=== PATIENT | female | born 1945 | race Caucasian/White ===

== ENCOUNTER 2023-01-23 | Outpatient (REF) | payer MEDICARE, SELFPAY | END 2023-01-23 00:01 | disposition home or self-care (01) | LOC: CF | PROVIDERS: Visit Provider Nurse Practitioner Family | DX: J44.9 Chronic obstructive pulmonary disease, unspecified (principal); R05.9 Cough, unspecified; R06.09 Other forms of dyspnea | CPT/HCPCS: 99212 ==

== ENCOUNTER 2023-01-23 14:44 | Outpatient (AMB) | payer MEDICARE, SELFPAY ==
--- NOTE | 2023-01-23 14:52 | A.OFFVIS_ITS ---
Intake Vital Signs 01/23/23 14:56 Height 5 ft 5 in Weight 175 lb BMI 29.1 BP 126/64 Blood Pressure Location Lt brachial Position Sitting Pulse 84 Pulse Source Pulse Oximeter Pulse Oximetry (%) 100 Oxygen Delivery Method Room Air Intake Visit Reasons: COPD Talent Manager Required: No Certified Master Locksmith: Certified Master Locksmith offered & declined Accompanied by: Daughter Allergies No Known Allergies Allergy (Verified 01/23/23 15:20) Medication List - Last Reconciled 01/23/23 by Bhakti Saunders LPN calcium carbonate 600 mg PO DAILY cetirizine 10 mg PO DAILY PRN cholecalciferol (vitamin D3) 50 mcg PO DAILY citalopram 20 mg PO DAILY fluticasone propionate 50 mcg/actuation (Flonase Allergy Relief) 2 sprays intranasal BID HPI COPD HPI Details Pippa is a very pleasant 77 year old female, never smoker, with underlying history of COPD and breast cancer s/p mastectomy. Denies any chemo/radiation, follows with oncology annually. She was referred by PCP for pulmonary evaluation. She reports being diagnosed with COPD last year and attributes it to significant secondary exposure from parents and . She reports dyspnea with moderate exertion such as hills and stairs. She does report intermittent bilateral lower extremity edema and orthopnea. She denies any prior echo. Over the last year she has had multiple episodes of bronchitis that seem to be prolonged each time. She reportedly just had bronchitis with a persistent productive cough with clear sputum which did not improve with prednisone or albuterol and she just finished a course of doxycyline last week, having complete resolution of symptoms. She reports post nasal drip. Denies any allergy testing. She denies any occupational exposures. She denies any pertinent family history. COUNTS INCLUDE 234 BEDS AT THE [facility] Social History (Updated 01/23/23 @ 15:06 by Bhakti Saunders LPN) Patient Tobacco Use Status: Never used Tobacco Review of Systems Const Denies chills, Denies excessive sweating, Denies fever(s), Denies headache(s) and Denies night sweats Eyes Denies dry eyes, Denies irritation and Denies itchy eyes ENT Reports Normal hearing present, Denies headache(s), Denies nasal congestion, Denies nasal discharge and Denies sore throat Card Denies chest pain, Denies chest pain at rest, Denies chest pain with activity and Denies paroxysmal nocturnal dyspnea Resp Denies chest congestion, Denies cough, Denies excessive phlegm production, Denies pain on inspiration, Denies pain with cough, Denies stridor and Denies wheezing Musc Denies myalgias Neuro Reports Normal hearing present and Denies headache(s) Endo Denies excessive sweating Marcelino/Lymph Denies lymphadenopathy Aller/Immun Denies itchy eyes, Denies seasonal rhinorrhea and Denies wheezing Physical Exam Vital Signs: Last Vital Signs Pulse 84 01/23/23 14:56 BP 126/64 01/23/23 14:56 Pulse Ox 100 01/23/23 14:56 Oxygen Delivery Method Room Air 01/23/23 14:56 BMI result Body Mass Index 29.1 Const General: cooperative, healthy appearing, comfortable, no acute distress, well developed and alert Orientation/consciousness: patient oriented x3 Limitations: no limitations HEENT Head: Yes normal to inspection, Yes normocephalic and Yes atraumatic Ears: hearing grossly normal bilaterally and external ears normal Eyes General: appearance normal, both eyes and all related structures Eyelids: Yes eyelids normal Sclerae: sclerae normal EOM: EOMs intact bilaterally Neck Neck: Yes normal visual inspection and Yes no lymphadenopathy Lymphatic: no lymphadenopathy noted Chest Chest palpation & inspection: normal inspection of the chest Resp Effort & Inspection: normal respiratory effort, able to speak in complete sentences, no audible wheezes, no cough, no stridor, not tachypneic, no tripod positioning and no use of accessory muscles Auscultation: clear to auscultation bilaterally Cardio Jugular venous distension: no JVD Rate: regular rate Rhythm: regular rhythm Skin Other: warm, dry General skin exam: no rashes or lesions noted Neuro General: patient oriented x3 Cranial nerves: Yes Normal hearing present Cognition (Neuro): normal cognition Gait exam (Neuro): Normal gait present Extrem Other: trace BLE edema General: Yes normal to inspection and Yes capillary refill normal Psych Appearance: grossly normal and well kempt Speech and movement: Normal speech and movement present and Clear speech present Affect: normal affect Attitude: cooperative Thought process: Normal thought process present Thought content: Normal thought content present Insight: Good insight present (Psych) Judgement: Good judgement present (Psych) Assessment & Plan Assessment & Plan (1) COPD (chronic obstructive pulmonary disease): Code(s): J44.9 - Chronic obstructive pulmonary disease, unspecified (2) Cough: Code(s): R05.9 - Cough, unspecified (3) Dyspnea on exertion: Code(s): R06.09 - Other forms of dyspnea Plan Pippa's symptoms are likely multifactorial with contribution from pulmonary and possible cardiac etiologies. She reports a history of COPD, of unknown severity, will send for PFT and labs. Will also send for chest CT for ongoing cough. She also reports ongoing symptoms of dyspnea on exertion, orthopnea, and bilateral lower extremity swelling. Will send for echocardiogram. All questions were answered and patient is in agreement of plan. Will follow up in 4-6 weeks to review results. Orders: Orders CT chest wo IV con Today J44.9 - Chronic obstructive pulmonary disease, unspecified, R05.9 - Cough, unspecified PFT pulmonary function test Today J44.9 - Chronic obstructive pulmonary disease, unspecified Complete Blood Count Auto Diff Today R05.9 - Cough, unspecified CA echo transthoracic complete Today R06.01 - Orthopnea, R06.09 - Other forms of dyspnea Rast Allergen Today R05.9 - Cough, unspecified Coding Level of Care Code New Pt Level 4 (93940) Diagnoses COPD (chronic obstructive pulmonary disease) J44.9 Cough R05.9 Dyspnea on exertion R06.09
[2023-01-23 14:56] VITALS: BP 126/64; PULSE 84; O2SAT 100; BMI 29.1
== END 2023-01-23 16:14 | disposition home or self-care (01) ==
LOC: HO.HPSW 14:44
PROVIDERS: PCP Internal Medicine; Visit Provider Nurse Practitioner Family
DX: J44.9 Chronic obstructive pulmonary disease, unspecified (principal); R05.9 Cough, unspecified; R06.09 Other forms of dyspnea
CPT/HCPCS: 99204

== ENCOUNTER 2023-02-27 08:27 | Outpatient (REF) | payer MEDICARE, SELFPAY ==
--- NOTE | ~2023-02-27 | CT_ITS ---
EXAMINATION: CT CHEST WITHOUT CONTRAST CLINICAL INFORMATION: COPD COMPARISON: None available. TECHNIQUE: Multidetector volumetric CT imaging of the chest was done. Axial MIP volume rendering provided. Sagittal and coronal reformatted images were obtained. This CT examination was performed using dose optimization techniques as appropriate, variously including the following: *Automated exposure control *Adjustment of mA and/or kV according to patient size (this includes techniques or standardized protocols for targeted exams where dose is matched to indication/reason for exam; i.e. extremities or head) *Use of iterative reconstruction technique DLP: 127 mGy-cm FINDINGS: MACHINE FEEDER RAW STOCK: Right breast hyperdensities. Slightly elevated right hemidiaphragm. LUNGS: Trachea and bronchi are patent. Intraluminal debris in the trachea and left mainstem bronchus likely mucus. Diffuse mild bronchial wall thickening. Scattered atelectasis. No consolidations or groundglass opacities. No definite emphysematous changes. 4 mm right minor fissural lymph node, 6:90. No suspicious lung lesions. MEDIASTINUM: Unremarkable thyroid. No pathologic lymphadenopathy. Nonenlarged heart. No pericardial effusion. Nonaneurysmal aorta with minimal atherosclerotic calcifications. Nonenlarged pulmonary arteries. CORONARY ARTERY CALCIFICATION: None visualized on this study. PLEURA: There is no pleural effusion. No pleural mass or thickening. AXILLA: No lymphadenopathy. UPPER ABDOMEN: Unremarkable. OSSEOUS AND SOFT TISSUE STRUCTURES: Bilateral breast implants. Focal hyperdensities adjacent to right breast prosthesis. Kyphosis and degenerative changes. CT/CT chest wo IV con IMPRESSION: No acute intrathoracic pathology, suspicious lung lesions or significant emphysematous changes. Fleischner guidelines were followed.
[2023-02-27 09:43] LABS: MANUAL DIFF FLAG NO
[2023-02-27 10:18] LABS: Basophils Percent Auto 0.2 % (0-2); Eosinophils Absolute Auto 0.1 X10*3/uL (0.0-0.4); Hematocrit 38.6 % (37.0-47.0); Hemoglobin 12.9 g/dl (12.0-16.0); Imm Gran Abs Auto 0.01 X10*3/uL (0.00-0.03); Imm Gran Pct Auto 0.2 % (0.0-0.4); Lymphocytes Absolute Auto 1.4 X10*3/uL (1.2-4.9); Lymphocytes Percent Auto 29.2 % (20-40); Mean Corpuscular HGB Conc 33.4 g/dl (31.0-35.0); Mean Corpuscular Hemoglobin 29.9 pg (27.0-33.0); Mean Corpuscular Volume 89.6 fL (80.0-98.0); Monocytes Absolute Auto 0.5 X10*3/uL (0.1-1.2); Neutrophils Absolute Auto 2.7 x10*3/uL (2.0-8.3); Neutrophils Percent Auto 57.4 % (45-73); Platelet Count 274 X10*3/uL (160-400); Red Blood Count 4.31 X10*6/uL (4.20-5.50); Red Cell Distribution Width 12.9 % (11.0-16.0); White Blood Count 4.7 X10*3/uL (4.8-10.8)
--- NOTE | 2023-02-27 11:08 | CA_ITS ---
Transthoracic Echocardiogram Patient (Last, First, Middle): Pippa Alonso C Gender: Female Date of : 1945 Age: 77 Procedure Date: 02/27/2023 Procedure Type: Transthoracic Echocardiogram Location: OP Height: 165.1 cm Weight: 78.93 kg BSA: 1.86 m2 Heart Rate: 84 bpm BP: 130 / 64 mmHg Virtualization Consultant: SB Referring MD: Genie Galvin CLAY DRY PRESS HELPER Symptoms: R06.09 - Other forms of dyspnea Study Quality: Technically Difficult/breast implants ECG Rhythm: Sinus Conclusions: - The left ventricular systolic function is hyperdynamic. The visually estimated ejection fraction is >70%. - No obvious valvular pathology seen on this study. - Mild pulmonary hypertension is present. Findings Procedure Information Contrast agent, definity, is being given per protocol without apparent complications. The quality of the study was technically difficult. Left Ventricle Normal left ventricular cavity size. The left ventricular systolic function is hyperdynamic. The visually estimated ejection fraction is >70%. There is no evidence of regional wall motion abnormalities. Diastolic function is normal for age. Right Ventricle The right ventricle was not well visualized. Normal right ventricular cavity size. Atria The left atrium is likely dilated. The right atrium is normal in size. Aortic Valve The aortic valve was not well visualized. There is no aortic valve stenosis. There is no aortic valve regurgitation. Mitral Valve The mitral valve was not well visualized. There is no mitral valve regurgitation. There is no mitral valve stenosis. Pulmonic Valve The pulmonic valve was not well visualized. Tricuspid Valve There is mild tricuspid valve regurgitation. Mild pulmonary hypertension is present. Great Vessels The aorta was not well visualized. Venous The inferior vena cava is normal in size and collapses less than 50% with inspiration. Pericardium/Pleural There is no evidence of pericardial effusion. Prior Study Comparison No prior study available for comparison. Recommendations, Care & Conclusions No obvious valvular pathology seen on this study. Measurements 2D Systolic Function EF 2C: 84.30 >55% Mitral Valve MV Pk E: 1.20 MV PK A: 0.72 MV Decel Time: 149.00 E/A: 1.70 E'Lateral: 8.55 E'Medial: 8.86 E/E' Med: 13.50 E/E' Lat: 14.00 PHT: 44.00 MVA PHT: 5.00 Decel [place]: 8.07 Aortic Valve AoV Pk Thad: 1.44 AoV Pk Grad: 8.00 LVOT LVOT Pk Thad: 1.30 LVOT Mn Thad: 0.91 LVOT VTI: 0.25 LVOT Pk Grad: 7.00 LVOT Mn Grad: 4.00 Diastolic Function MV Pk E: 1.20 MV Pk A: 0.72 E/A: 1.70 E'Medial: 8.86 E/E' Med: 13.50 E' Laterial: 8.55 E/E' Lat: 14.00 Tricuspid Valve TR Pk Thad: 2.89 TR Pk Grad: 33.00 RA Press: 3.00 RVSP: 36.00 Great Vessels Aorta Ao Arch: 2.80 Pulmonary Valve PV Pk Thad: 0.95 Peak PV Grad: 4.00 Updated in Other Vendor System with Status of Final Fito Guaman MD electronically signed on 02/28/2023 1:03:48 PM with status of Final
--- NOTE | 2023-02-27 11:46 | PFT_ITS ---
Forced vital capacity 74%, FEV1 77%, FEV1/FVC ratio is 79. [id number] 94% and MVV 77%. Post bronchodilator therapy, there is no significant change. Lung Volumes: Total lung capacity 76%. Residual volume 84%. Diffusion capacity 41%. DL/VA is 100%. CONCLUSION: There is evidence of mild restrictive pulmonary disorder. No obstructive airway disorder. No response to bronchodilator therapy. Diffusion capacity is quite decreased, but it corrects to normal when compared with the volume. DL/VA noted 100%. Jada Mallory MD MSB/MODL / [id number]
== END 2023-02-27 08:28 | disposition home or self-care (01) ==
LOC: HO.CT 08:27
PROVIDERS: PCP Internal Medicine; Visit Provider Nurse Practitioner Family
DX: J44.9 Chronic obstructive pulmonary disease, unspecified (principal); R05.9 Cough, unspecified; R06.09 Other forms of dyspnea; R06.01 Orthopnea
CPT/HCPCS: 36415; 71250; 82785; 85025; 86003; 93306; 94010; 94727; 94729; Q9957

== ENCOUNTER → 2023-02-27 11:08 | Outpatient (BNV) | payer MEDICARE, SELFPAY | PROVIDERS: PCP Internal Medicine; Visit Provider Internal Medicine | DX: I36.1 Nonrheumatic tricuspid (valve) insufficiency (principal) | CPT/HCPCS: 93306 ==

== ENCOUNTER → 2023-02-27 11:46 | Outpatient (BNV) | payer MEDICARE, SELFPAY | PROVIDERS: PCP Internal Medicine; Visit Provider Internal Medicine | DX: J44.9 Chronic obstructive pulmonary disease, unspecified (principal); R05.9 Cough, unspecified | CPT/HCPCS: 94060; 94727; 94729 ==

== ENCOUNTER 2023-03-11 15:29 | Outpatient (AMB) | payer MEDICARE, SELFPAY ==
[2023-03-11 16:10] VITALS: BP 128/64; PULSE 79; O2SAT 100
--- NOTE | 2023-03-11 16:10 | A.OFFVIS_ITS ---
Intake Vital Signs 3 03/11/23 16:10 Height 5 ft 5 in BP 128/64 Blood Pressure Location Rt brachial Position Sitting Pulse 79 Pulse Source Pulse Oximeter Pulse Oximetry (%) 100 Oxygen Delivery Method Room Air Intake Visit Reasons: 6 weeks f/u Machine Operator Hop Worker Required: No Loan Specialist: Loan Specialist offered & declined Allergies No Known Allergies Allergy (Verified 03/11/23 16:16) Medication List - Last Reconciled 03/11/23 by Bhakti Saunders LPN albuterol sulfate 90 mcg/actuation 2 puffs inhalation Q4-6H PRN albuterol sulfate 2.5 mg (3 mL) inhalation Q4-6H PRN calcium carbonate 600 mg PO DAILY cetirizine 10 mg PO DAILY PRN cholecalciferol (vitamin D3) 50 mcg PO DAILY citalopram 20 mg PO DAILY fluticasone propionate 50 mcg/actuation (Flonase Allergy Relief) 2 sprays intranasal BID HPI 6 weeks f/u 2 HPI0 Details Pipap is a very pleasant 77 year old female, never smoker, with underlying history of chronic bronchitis and breast cancer s/p mastectomy. Denies any chemo/radiation, follows with oncology annually. Today she presents to review results of PFT, chest CT, RAST and echo. She continues to report dyspnea with moderate exertion such as stairs and hills. She also noted intermittent cough, bilateral lower extremity edema and orthopnea. At the last visit she was started on [place], however was unaware to continue as a maintenance inhaler, so discontinued after two weeks. [facility] Social History (Updated 03/11/23 @ 16:19 by Bhakti Saunders LPN) Patient Tobacco Use Status: Never used Tobacco Smoked in Last 30 Days: No Review of Systems Const Denies chills, Denies excessive sweating, Denies fever(s), Denies headache(s) and Denies night sweats Eyes Denies dry eyes, Denies irritation and Denies itchy eyes ENT Reports Normal hearing present, Denies headache(s), Denies nasal congestion, Denies nasal discharge and Denies sore throat Card Denies chest pain, Denies chest pain at rest, Denies chest pain with activity and Denies paroxysmal nocturnal dyspnea Resp Denies chest congestion, Denies cough, Denies excessive phlegm production, Denies pain on inspiration, Denies pain with cough, Denies stridor and Denies wheezing Musc Denies myalgias Neuro Reports Normal hearing present and Denies headache(s) Endo Denies excessive sweating Marcelino/Lymph Denies lymphadenopathy Aller/Immun Denies itchy eyes, Denies seasonal rhinorrhea and Denies wheezing Physical Exam Vital Signs: Last Vital Signs Pulse 79 03/11/23 16:10 BP 128/64 03/11/23 16:10 Pulse Ox 100 03/11/23 16:10 Oxygen Delivery Method Room Air 03/11/23 16:10 Const General: cooperative, healthy appearing, comfortable, no acute distress, well developed and alert Orientation/consciousness: patient oriented x3 Limitations: no limitations HEENT Head: Yes normal to inspection, Yes normocephalic and Yes atraumatic Ears: hearing grossly normal bilaterally and external ears normal Eyes General: appearance normal, both eyes and all related structures Eyelids: Yes eyelids normal Sclerae: sclerae normal EOM: EOMs intact bilaterally Neck Neck: Yes normal visual inspection and Yes no lymphadenopathy Lymphatic: no lymphadenopathy noted Chest Chest palpation & inspection: normal inspection of the chest Resp Effort & Inspection: normal respiratory effort, able to speak in complete sentences, no audible wheezes, no cough, no stridor, not tachypneic, no tripod positioning and no use of accessory muscles Auscultation: clear to auscultation bilaterally Cardio Jugular venous distension: no JVD Rate: regular rate Rhythm: regular rhythm Skin Other: warm, dry General skin exam: no rashes or lesions noted Neuro General: patient oriented x3 Cranial nerves: Yes Normal hearing present Cognition (Neuro): normal cognition Gait exam (Neuro): Normal gait present Extrem Other: trace BLE edema General: Yes normal to inspection and Yes capillary refill normal Psych Appearance: grossly normal and well kempt Speech and movement: Normal speech and movement present and Clear speech present Affect: normal affect Attitude: cooperative Thought process: Normal thought process present Thought content: Normal thought content present Insight: Good insight present (Psych) Judgement: Good judgement present (Psych) Results Reviewed Results Reviewed: [address] [address] [address] Scan Report Signed Patient: Pippa Alonso MR#: [id number] : 1945 Acct:[id number] Age/Sex: 77 / F ADM Date: 02/27/23 Loc: HO.CT Attending Dr: Genie Galvin NP Ordering Physician: Genie Galvin NP Date of Service: 02/27/23 Procedure(s): CT chest wo IV con Accession Number(s): [id number] cc: LALA GREGORY MD; Genie Galvin NP~ EXAMINATION: CT CHEST WITHOUT CONTRAST CLINICAL INFORMATION: COPD COMPARISON: None available. TECHNIQUE: Multidetector volumetric CT imaging of the chest was done. Axial MIP volume rendering provided. Sagittal and coronal reformatted images were obtained. This CT examination was performed using dose optimization techniques as appropriate, variously including the following: *Automated exposure control *Adjustment of mA and/or kV according to patient size (this includes techniques or standardized protocols for targeted exams where dose is matched to indication/reason for exam; i.e. 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 Slightly elevated right hemidiaphragm. LUNGS: Trachea and bronchi are patent. Intraluminal debris in the trachea and left mainstem bronchus likely mucus. Diffuse mild bronchial wall thickening. Scattered atelectasis. No consolidations or groundglass opacities. No definite emphysematous changes. 4 mm right minor fissural lymph node, 6:90. No suspicious lung lesions. MEDIASTINUM: Unremarkable thyroid. No pathologic lymphadenopathy. Nonenlarged heart. No pericardial effusion. Nonaneurysmal aorta with minimal atherosclerotic calcifications. Nonenlarged pulmonary arteries. CORONARY ARTERY CALCIFICATION: None visualized on this study. PLEURA: There is no pleural effusion. No pleural mass or thickening. AXILLA: No lymphadenopathy. UPPER ABDOMEN: Unremarkable. OSSEOUS AND SOFT TISSUE STRUCTURES: Bilateral breast implants. Focal hyperdensities adjacent to right breast prosthesis. Kyphosis and degenerative changes. CT/CT chest wo IV con IMPRESSION: No acute intrathoracic pathology, suspicious lung lesions or significant emphysematous changes. Fleischner guidelines were followed. [address] [address] Cardiology Report Signed Patient: Pippa Alonso MR#: [id number] : 1945 Acct:[id number] Age/Sex: 77 / F ADM Date: 02/27/23 Loc: HO.CT Attending Dr: Genie Galvin HEAD OF MARKETING ADOMETRY Ordering Physician: Genie Galvin NP Date of Service: 02/27/23 Procedure(s): CA echo transthorac w con Accession Number(s): cc: Genie Galvin HEAD OF MARKETING ADOMETRY~ Transthoracic Echocardiogram Patient (Last, First, Middle): Pippa Alonso C Gender: Female Date of : 1945 Age: 77 Procedure Date: 02/27/2023 Procedure Type: Transthoracic Echocardiogram Location: OP Height: 165.1 cm Weight: 78.93 kg BSA: 1.86 m2 Heart Rate: 84 bpm BP: 130 / 64 mmHg Metal Stamper: SB Referring MD: Genie Galvin NP Symptoms: R06.09 - Other forms of dyspnea Study Quality: Technically Difficult/breast implants ECG Rhythm: Sinus Conclusions: - The left ventricular systolic function is hyperdynamic. The visually estimated ejection fraction is >70%. - No obvious valvular pathology seen on this study. - Mild pulmonary hypertension is present. Findings Procedure Information Contrast agent, definity, is being given per protocol without apparent complications. The quality of the study was technically difficult. Left Ventricle Normal left ventricular cavity size. The left ventricular systolic function is hyperdynamic. The visually estimated ejection fraction is >70%. There is no evidence of regional wall motion abnormalities. Diastolic function is normal for age. Right Ventricle The right ventricle was not well visualized. Normal right ventricular cavity size. Atria The left atrium is likely dilated. The right atrium is normal in size. Aortic Valve The aortic valve was not well visualized. There is no aortic valve stenosis. There is no aortic valve regurgitation. Mitral Valve The mitral valve was not well visualized. There is no mitral valve regurgitation. There is no mitral valve stenosis. Pulmonic Valve The pulmonic valve was not well visualized. Tricuspid Valve There is mild tricuspid valve regurgitation. Mild pulmonary hypertension is present. Great Vessels The aorta was not well visualized. Venous The inferior vena cava is normal in size and collapses less than 50% with inspiration. Pericardium/Pleural There is no evidence of pericardial effusion. Prior Study Comparison No prior study available for comparison. Recommendations, Care & Conclusions No obvious valvular pathology seen on this study. Measurements 2D Systolic Function EF 2C: 84.30 >55% Mitral Valve MV Pk E: 1.20 MV PK A: 0.72 MV Decel Time: 149.00 E/A: 1.70 E'Lateral: 8.55 E'Medial: 8.86 E/E' Med: 13.50 E/E' Lat: 14.00 PHT: 44.00 MVA PHT: 5.00 Decel [place]: 8.07 Aortic Valve AoV Pk Thad: 1.44 AoV Pk Grad: 8.00 LVOT LVOT Pk Thad: 1.30 LVOT Mn Thad: 0.91 LVOT VTI: 0.25 LVOT Pk Grad: 7.00 LVOT Mn Grad: 4.00 Diastolic Function MV Pk E: 1.20 MV Pk A: 0.72 E/A: 1.70 E'Medial: 8.86 E/E' Med: 13.50 E' Laterial: 8.55 E/E' Lat: 14.00 Tricuspid Valve TR Pk Thad: 2.89 TR Pk Grad: 33.00 RA Press: 3.00 RVSP: 36.00 Great Vessels Aorta Ao Arch: 2.80 Pulmonary Valve PV Pk Thad: 0.95 Peak PV Grad: 4.00 Updated in Other Vendor System with Status of Final Fito Guaman MD electronically signed on 02/28/2023 1:03:48 PM with status of Final Assessment & Plan Assessment & Plan (1) Cough: Code(s): R05.9 - Cough, unspecified (2) Dyspnea on exertion: Code(s): R06.09 - Other forms of dyspnea (3) Chronic bronchitis: Code(s): J42 - Unspecified chronic bronchitis Plan RAST negative. Reviewed PFT which revealed a mild restrictive defect without significant response to bronchodilation, except in small to medium airways. There was no obstructive defect. TLC 76%, FEV1 77%. Decreased DLCO of 41% which is suggestive of underlying parenchymal disease however chest CT revealed scattered atelectasis with diffuse bronchial thickening, without the presence of any fibrosis. Decreased diffusion capacity possibly related to pulmonary edema. Echo did reveal diastolic dysfunction with a LVEF >70% as well as mild pulmonary hypertension, RVSP 36. Will discuss with Dr. Herzog and review with patient best treatment plan moving forward. All questions were answered and patient is in agreement of plan. Coding Level of Care Code Est Pt Level 4 (22931) Diagnoses Cough R05.9 Dyspnea on exertion R06.09 Chronic bronchitis J42
== END 2023-03-11 17:14 | disposition home or self-care (01) ==
LOC: HO.HPSW 15:29
PROVIDERS: PCP Internal Medicine; Visit Provider Nurse Practitioner Family
DX: R05.9 Cough, unspecified (principal); R06.09 Other forms of dyspnea; J42 Unspecified chronic bronchitis
CPT/HCPCS: 99214

== ENCOUNTER → 2023-03-11 15:29 | Outpatient (BNVA) | payer MEDICARE, SELFPAY | PROVIDERS: PCP Internal Medicine; Visit Provider Nurse Practitioner Family | DX: R05.9 Cough, unspecified (principal); R06.09 Other forms of dyspnea; J42 Unspecified chronic bronchitis | CPT/HCPCS: 99212 ==